=== PATIENT | female | born 1990 | race American Indian/Alaskan Native ===

== ENCOUNTER 2020-05-19 07:55 | Emergency (ER) | payer MEDICAID ==
[~2020-05-19] VITALS: Ht 165.1 cm; Wt 54.4 kg
== END 2020-05-19 11:25 | disposition home or self-care (01) ==
LOC: ED 07:55
DX: M54.9 Dorsalgia, unspecified (principal); R00.0 Tachycardia, unspecified; F15.90 Other stimulant use, unspecified, uncomplicated; F17.200 Nicotine dependence, unspecified, uncomplicated
CPT/HCPCS: 76830; 76856; 80053; 81001; 84703; 85025; 96361; 96374; 99284-25; J1885; J7030

== ENCOUNTER 2020-06-25 05:43 | Emergency (ER) | payer OTHER ==
[~2020-06-25] VITALS: Ht 165.1 cm; Wt 54.4 kg
[2020-06-25] MEDS ORDERED: ZOFRAN4 MG PO (07:04)
[2020-06-25] MEDS ORDERED: POTASSIUM CHLO20 ME1 PO (07:04)
--- NOTE | 2020-06-25 19:55 | PATH ---
[facility] [address] [place], [place] [address] Signed ORDERING PHYSICIAN: Billie Vick MD PATIENT NAME: RADAMES WILD GENDER: F : 1990 SPECIMEN(S): CLINICAL HISTORY: Routine Pap Smear MOLECULAR PATHOLOGY RESULTS: SARS-CoV-2 Not Detected ADDITIONAL NOTES.: The Blanding Fusion SARS-CoV-2 Assay is a multiplex real-time PCR (RT-PCR) in vitro diagnostic test intended for the qualitative detection of RNA from SARS-CoV-2 from individuals who meet COVID-19 clinical and/or epidemiological criteria. In general, SARS-CoV-2 RNA can be detected during the acute phase of infection. Positive results indicate the presence of SARS-CoV-2 RNA. Clinical correlation with patient history and other diagnostic information is necessary to determine patient infection status. Positive results do not rule out bacterial infection or co-infection with other viruses. Negative results do not preclude SARS-CoV-2 infection and should not be used as the sole basis for patient management decisions. Negative results must be combined with other clinical observations, patient history, and epidemiological information. The Blanding Fusion SARS-CoV-2 Assay is not yet approved or cleared by the [place] FDA. When there are no FDA-approved or cleared tests available, and other criteria are met, FDA can make tests available under an emergency access mechanism called an Emergency Use Authorization (EUA). The EUA for this test is supported by the Drywall Taper Helper of Health and Human Service's (HHS's) declaration that circumstances exist to justify the emergency use of in vitro diagnostics for the detection and/or diagnosis of the virus that causes COVID-19. This EUA will remain in effect for the duration of the COVID-19 declaration justifying emergency of IVDs, unless it is terminated or revoked by FDA, after which the test may no longer be used. The Blanding Fusion SARS-CoV-2 Assay is for use only under EUA in US laboratories certified under the Clinical Laboratory Improvement PATIENT NAME: RADAMES WILD PATHOLOGY DATE OF : [birth year] REPORT #: [id number] PHYSICIAN: SITA PATHOLOGY PCP: NO PRIMARY CARE PHYSICIAN REPORT IS CONFIDENTIAL AND NOT TO BE RELEASED WITHOUT AUTHORIZATION [facility] [address] [place] [id number] Signed Amendments of 1988 (CLIA) to perform high complexity tests. [facility] is certified under CLIA to perform high complexity clinical laboratory testing. PERFORMING LABORATORY.: Molecular testing was performed by [facility] [address] [place], [place] [address] [address] (Property Technician: Dale Jorge D.O.; CLIA#: [id number]) Diagnostician: System Interface Pathologist Electronically Signed 06/25/2020 Copies: ~ PATIENT NAME: RADAMES WILD PATHOLOGY DATE OF : [birth year] REPORT #: [id number] PHYSICIAN: SITA BARRERA PCP: NO PRIMARY CARE PHYSICIAN REPORT IS CONFIDENTIAL AND NOT TO BE RELEASED WITHOUT AUTHORIZATION
--- NOTE | 2020-06-26 15:10 | EKG ---
[facility] [address] [facility] [place] [address] Signed Sinus rhythm with marked sinus arrhythmia Possible Left atrial enlargement Borderline ECG No previous ECGs available Confirmed by DEMETRICE MOTTA MD ([id number]) on 06/26/2020 3:10:24 PM Electronically Signed By: DEMETRICE MOTTA MD 06/26/20 1510 PATIENT NAME: RADAMES WILD Electrocardiogram DATE OF : [birth year] PHYSICIAN: DEMETRICE MOTTA MD REPORT #: [id number] REPORT IS CONFIDENTIAL AND NOT TO BE RELEASED WITHOUT AUTHORIZATION
== END 2020-06-25 07:13 | disposition home or self-care (01) ==
LOC: ED 05:43
DX: O99.511 Diseases of the respiratory system complicating pregnancy, first trimester (principal); J06.9 Acute upper respiratory infection, unspecified; O99.281 Endocrine, nutritional and metabolic diseases complicating pregnancy, first trimester; E87.6 Hypokalemia; Z20.828 Contact with and (suspected) exposure to other viral communicable diseases; Z3A.01 Less than 8 weeks gestation of pregnancy; O99.331 Smoking (tobacco) complicating pregnancy, first trimester; F17.200 Nicotine dependence, unspecified, uncomplicated
CPT/HCPCS: 71045; 80053; 81001; 83735; 84703; 85025; 85379; 87077; 87088; 87186; 93005; 93010; 96374; 99285-25; C9803; J2405; J7030

== ENCOUNTER 2020-06-25 12:18 | Emergency (ER) | payer SELFPAY ==
[~2020-06-25] VITALS: Ht 165.1 cm; Wt 54.4 kg
[~2020-06-25 12:18] MED LIST: POTASSIUM CHLO20 ME1 PO; ZOFRAN4 MG PO
--- OUTSIDE RECORDS SUMMARY | 2020-06-25 12:20 | XMS ---
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 Evelyn has no Care Guidelines for this patient. [facility] MO[facility] NOTE: Visits indicate total known visits. ED/C VISIT TRACKING (12 MO.) 06/25/2020 12:[address] [facility] [place] TYPE: Emergency COMPLAINT: - VAGINAL BLEEDING 06/25/2020 05:43 [facility] [place] TYPE: Emergency COMPLAINT: - CHEST PAIN, VOMITING 05/19/2020 07:55 [facility] TYPE: Emergency COMPLAINT: - ABD PAIN, BACK PAIN DIAGNOSES: - Nicotine dependence, unspecified, uncomplicated - Tachycardia, unspecified - Other stimulant use, unspecified, uncomplicated - Lower abdominal pain, unspecified - Dorsalgia, unspecified INPATIENT VISIT TRACKING (12 MO.) No inpatient visits to display in this time frame [email or web address]
== END 2020-06-25 16:31 | disposition home or self-care (01) ==
LOC: ED 12:18
DX: O20.0 Threatened abortion (principal); O99.331 Smoking (tobacco) complicating pregnancy, first trimester; F17.200 Nicotine dependence, unspecified, uncomplicated; Z79.899 Other long term (current) drug therapy
CPT/HCPCS: 84702; 86900; 86901; 87491; 87591; 96372; 99284-25; J0696

== ENCOUNTER 2020-07-11 14:08 | Emergency (ER) | payer OTHER ==
[~2020-07-11] VITALS: Ht 165.1 cm; Wt 54.4 kg
--- OUTSIDE RECORDS SUMMARY | 2020-07-11 14:12 | XMS ---
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 Evelyn has no Care Guidelines for this patient. Care History Medical/Surgical 06/28/2020 [facility] -CHW CONTACTED PATIENT-PATIENT STATED SHE IS WORKING WITH SOMEONE ON APPLYING FOR OHP. DOES NOT NEED FURTHER ASSISTANCE WITH FINDING A PCP AND OR HELP APPLYING FOR OHP- PATIENT RECENTLY MOVED FROM [place] AND HAS [place] MEDICAID CURRENTLY. E.D. VISIT COUNT (12 MO.) 4 [facility] TOTAL 4 NOTE: Visits indicate total known visits. ED/UCC VISIT TRACKING (12 MO.) 07/11/2020 14:09 [facility] [place] TYPE: Emergency COMPLAINT: - LOWER BACK PAIN 06/25/2020 12:18 [facility] [place] TYPE: Emergency COMPLAINT: - VAGINAL BLEEDING DIAGNOSES: - Other long-term (current) drug therapy - Nicotine dependence, unspecified, uncomplicated - Threatened - Abnormal uterine and vaginal bleeding, unspecified - Smoking (tobacco) complicating , first trimester 06/25/2020 05:43 [facility] [place] TYPE: Emergency COMPLAINT: - CHEST PAIN, VOMITING DIAGNOSES: - Nicotine dependence, unspecified, uncomplicated - Less than 8 weeks gestation of - Acute upper respiratory infection, unspecified - Cough - Endocrine, nutritional and metabolic diseases complicating pr - Diseases of the respiratory system complicating , fi - Smoking (tobacco) complicating , first trimester - Hypokalemia - Contact with and (suspected) exposure to other viral communic 05/19/2020 07:55 [facility] [place] TYPE: Emergency COMPLAINT: - ABD PAIN, BACK PAIN DIAGNOSES: - Nicotine dependence, unspecified, uncomplicated - Tachycardia, unspecified - Other stimulant use, unspecified, uncomplicated - Lower abdominal pain, unspecified - Dorsalgia, unspecified INPATIENT VISIT TRACKING (12 MO.) No inpatient visits to display in this time frame [email or web address]
== END 2020-07-11 17:31 | disposition home or self-care (01) ==
LOC: ED 14:08
DX: O03.9 Complete or unspecified spontaneous abortion without complication (principal); F17.200 Nicotine dependence, unspecified, uncomplicated
CPT/HCPCS: 76801; 76817; 84702; 85025; 99284-25

== ENCOUNTER 2020-09-08 21:51 | Emergency (ER) | payer OTHER ==
[~2020-09-08] VITALS: Ht 165.1 cm; Wt 57.2 kg
[2020-09-09] MEDS ORDERED: ZOFRAN4 MG PO (00:52)
--- NOTE | 2020-09-09 09:51 | EKG ---
[facility] [address] [facility] [place] [facility] [place], [place] [address] Signed Sinus tachycardia Biatrial enlargement Abnormal ECG When compared with ECG of 25-JUN-2020 05:50, No significant change was found Confirmed by DEMETRICE MOTTA MD ([id number]) on 09/09/2020 9:51:49 AM Electronically Signed By: DEMETRICE MOTTA MD 09/09/20 0951 PATIENT NAME: TORRIRADAMES Electrocardiogram DATE OF : [birth year] PHYSICIAN: DEMETRICE MOTTA MD REPORT #: [id number] REPORT IS CONFIDENTIAL AND NOT TO BE RELEASED WITHOUT AUTHORIZATION
== END 2020-09-09 01:10 | disposition home or self-care (01) ==
LOC: ED 21:51
DX: O21.0 Mild hyperemesis gravidarum (principal); O99.321 Drug use complicating pregnancy, first trimester; F15.10 Other stimulant abuse, uncomplicated; Z3A.11 11 weeks gestation of pregnancy; O99.511 Diseases of the respiratory system complicating pregnancy, first trimester; J45.909 Unspecified asthma, uncomplicated; O99.331 Smoking (tobacco) complicating pregnancy, first trimester; F17.200 Nicotine dependence, unspecified, uncomplicated
CPT/HCPCS: 76801; 76817; 80053; 81001; 83605; 83690; 83735; 84702; 84703; 85025; 93005; 93010; 96374; 99284-25; J2405; J7030

== ENCOUNTER 2020-11-16 01:35 | Emergency (ER) | payer OTHER ==
[~2020-11-16] VITALS: Ht 165.1 cm; Wt 59.0 kg
[2020-11-16] MEDS ORDERED: PRENATAL FORMU1 EAC2 PO (01:45)
== END 2020-11-16 05:08 | disposition home or self-care (01) ==
LOC: ED 01:35
DX: O99.891 Other specified diseases and conditions complicating pregnancy (principal); M54.5 Low back pain; M54.2 Cervicalgia; R10.9 Unspecified abdominal pain; O99.332 Smoking (tobacco) complicating pregnancy, second trimester; F17.200 Nicotine dependence, unspecified, uncomplicated; Z3A.20 20 weeks gestation of pregnancy; V47.6XXA Car passenger injured in collision with fixed or stationary object in traffic accident, initial encounter
CPT/HCPCS: 72125; 74177; 76815; 76817; 80053; 83690; 84702; 85025; 99284-25; A9270; Q9967

== ENCOUNTER 2021-03-18 01:14 | Inpatient (IN) | payer OTHER ==
[~2021-03-18] VITALS: Ht 165.1 cm; Wt 60.3 kg
[~2021-03-18 01:14] MED LIST changes: +PRENATAL FORMU1 EAC2 PO
--- NOTE | 2021-03-18 03:20 | NUR ---
03/18/21 0320 Bryanna Dnoovan 0310 PATIENT ARRIVES TO EYES CLOSED, YELLING AND SCREAMING. REQUIRES 2 RNS TO KEEP PATIENT IN BED. DOES NOT FOLLOW COMMANDS. RESP EVEN AND UNLABORED, ROOM AIR SATS >98%. 0315 [employer] [employer] FUNDER AT BEDSIDE. MEDICATING PATIENT FOR AGGITATION. RESP EVEN AND UNLABORED, ROOM AIR SATS >97%. 0319 PATIENT STILL AGGITATED. CONTINUES TO REQUIRE 2 RNS AT BEDSIDE TO KEEP PATIENT IN BED. PATIENTS EYES CLOSED, DOES NOT FOLLOW COMMANDS BUT TRYING TO GET OUT OF BED. YELLING AND SCREAMING AT STAFF. SIGNIFICANT OTHER AT BEDSIDE, REPORTS PATIENT HAS A HX OF FENTANYL DRUG USE.
--- NOTE | 2021-03-18 08:35 | OR ---
[facility] [address] [place], [place] [address] Signed DATE OF OPERATION: 03/18/2021 SURGEON: Salvador Patel MD PREOPERATIVE DIAGNOSES: Term labor, previous section and inadequate care. POSTOPERATIVE DIAGNOSIS: Term labor, previous section and inadequate care. PROCEDURE: Repeat low transverse segment section, delivery of live female infant. FIRE AND SAFETY HELPER: Dr. Luque. ANESTHESIA: Spinal and general. ESTIMATED BLOOD LOSS: 700 mL. COMPLICATIONS: None. DRAINS: Weir to bladder. FINDINGS: Live female infant, Apgars 8 and 9. Weight 7 pounds 4 ounces. Normal uterus, normal tubes and ovaries bilateral. There was small adhesion from the right anterior uterus to the anterior abdominal wall, approximately 1 cm wide, otherwise no adhesions. DESCRIPTION OF PROCEDURE: The patient was brought to the operating room, placed in supine position. After spinal anesthesia was obtained, the patient was prepped and draped in usual sterile fashion. Upon testing patient for adequate anesthesia, the spinal was not effective, so it was decided to proceed with general anesthesia. The patient had Weir catheter already placed in the bladder, so as soon as general anesthesia was obtained, a Pfannenstiel skin incision was made with a scalpel through previous skin incision. Subcutaneous Electronically Signed By: SALVADOR PATEL MD 03/18/21 0835 PATIENT NAME: RADAMES WILD OPERATIVE REPORT DATE OF : [birth year] REPORT #: [id number] PHYSICIAN: SALVADOR PATEL MD PCP: NO PRIMARY CARE PHYSICIAN REPORT IS CONFIDENTIAL AND NOT TO BE RELEASED WITHOUT AUTHORIZATION [facility] [address] [place], [place] [address] Signed tissue was dissected with a scalpel and the fascia nicked with scalpel and extended in transverse fashion using curved scissors. The underlying abdominal musculature was bluntly from the abdominal musculature. The abdominal musculature was along the midline, peritoneum was nicked with scissors and extended in vertical fashion using curved scissors. The uterine adhesion was noted and this was cut with Mahmood scissors and then the Petar self-retaining retractor inserted into the incision and tightened in place. The lower uterine segment was identified and noted to be quite thin. Lower uterine segment was carefully nicked with scalpel and extended in transverse fashion using finger dissection, clear fluid came from the incision. The infant was noted to be in vertex presentation and the infant's head easily delivered from the incision. The rest of the was easily delivered from the incision. The cord was doubly clamped and cut. The passed off table in good condition to awaiting nurse. The placenta was manually removed and uterine cavity explored to lap pad removing any retained membranes. An angle stitch of 0 Monocryl was placed at one end of the incision and a running locking stitch of 0-Monocryl starting at the other end used to close the incision. A 2nd running stitch of 0 Monocryl was used to imbricate the 1st layer. Good hemostasis was noted. The entire pelvis was irrigated suctioned, examined and noted to have good hemostasis. At this point, the Petar retractor was removed. The area of adhesion on the uterus was cauterized at the cut end to prevent any bleeding and then sheet of ACell placed over the lower uterine segment to help with healing. The anterior wall peritoneum was closed using running stitch of 2-0 Vicryl suture. The abdominal musculature was reapproximated using interrupted stitches of 0 Vicryl suture. The abdominal wall incision was irrigated, suctioned, and examined, and any bleeding spots cauterized with Bovie. The abdominal musculature was then sprinkled with powdered ACell. The fascia was then closed using two running stitch of 0 Vicryl suture meeting in the midline. Subcutaneous tissue was irrigated, suctioned, and examined, and any bleeding spots cauterized with the Bovie. Subcutaneous tissue was then closed using interrupted stitches of 3-0 Vicryl suture and the skin was reapproximated using skin clips. The patient tolerated the procedure well, went to recovery room in good condition. The sponge, needle, and instrument count were correct at end of procedure. Salvador Patel MD MJB/MODL /[id number] Electronically Signed By: SALVADOR PATEL MD 03/18/21 0835 PATIENT NAME: RADAMES WILD OPERATIVE REPORT DATE OF : [birth year] REPORT #: [id number] PHYSICIAN: SALVADOR PATEL MD PCP: NO PRIMARY CARE PHYSICIAN REPORT IS CONFIDENTIAL AND NOT TO BE RELEASED WITHOUT AUTHORIZATION [address] [address] Signed cc: Tiffany Brand MD Copies: TIFFANY BRAND MD ~ Electronically Signed By: SALVADOR PATEL MD 03/18/21 0835 PATIENT NAME: RADAMES WILD OPERATIVE REPORT DATE OF : [birth year] REPORT #: [id number] PHYSICIAN: SALVADOR PATEL MD PCP: NO PRIMARY CARE PHYSICIAN REPORT IS CONFIDENTIAL AND NOT TO BE RELEASED WITHOUT AUTHORIZATION
--- NOTE | 2021-03-19 10:49 | PR ---
[facility] [address] [place] [address] Signed PP Progress Notes Datetime Report Generated by CPN: 03/19/2021 10:49 SUBJECTIVE: [id number] Pain: Within Normal Limits Nausea/Vomiting: Denies Vital Signs: [id number] Vital Signs: Reviewed; Within Normal Limits EXAM: Ongoing Abdomen/Uterus: Normal Lochia: Normal Extremities: Normal Incision: Normal IMPRESSION/PLAN/PROCEDURES: [id number] Impression: Normal Progression Plan: Continue Present Management Procedures: None Progress Notes: Doing well except still some abdominal soreness, but has been up walking in room and has been able to void. Increase activitiy as tolerated. Signing Physician: Juan Florez MD Copies: ~ *Electronically Signed* 03/19/21 1049 JUAN FLOREZ MD PATIENT NAME: RADAMES WILD PROGRESS NOTE DATE OF : [birth year] PHYSICIAN: JUAN FLOREZ MD RPT #: [id number] REPORT IS CONFIDENTIAL AND NOT TO BE RELEASED WITHOUT AUTHORIZATION
--- NOTE | 2021-03-20 12:40 | PR ---
[facility] [address] [facility] [place], [place] [address] Signed PP Progress Notes Datetime Report Generated by CPN: 03/20/2021 12:40 SUBJECTIVE: [id number] Pain: Within Normal Limits Nausea/Vomiting: Denies Bowel Movement: Yes Vital Signs: [id number] Vital Signs: Reviewed; Within Normal Limits EXAM: Ongoing Abdomen/Uterus: Normal Lochia: Normal Extremities: Normal Incision: Normal IMPRESSION/PLAN/PROCEDURES: [id number] Impression: Normal Progression Other Impression: PP Anemia Plan: Discharge Procedures: None Progress Notes: Doing well, except slight clear productive cough, with clear lungs after coughing, no fever, no SOB. Loose stool yesterday seemd to be improving after taking Imodium. Ready to go home. Signing Physician: Juan Florez MD Copies: ~ *Electronically Signed* 03/20/21 1240 JUAN FLOREZ MD PATIENT NAME: RADAMES WILD PROGRESS NOTE DATE OF : [birth year] PHYSICIAN: JUAN FLOREZ MD RPT #: [id number] REPORT IS CONFIDENTIAL AND NOT TO BE RELEASED WITHOUT AUTHORIZATION
== END 2021-03-20 13:45 | disposition home or self-care (01) | DRG 788 ==
LOC: FBCO 01:14 → FBC 01:24
PROVIDERS: ADMIT General Practice; ATTEND General Practice
PROC: 10D00Z1 Extraction of Products of Conception, Low, Open Approach (ICD-10-PCS; principal; 2021-03-18 02:07)
PROC: 3E0234Z Introduction of Serum, Toxoid and Vaccine into Muscle, Percutaneous Approach (ICD-10-PCS; 2021-03-20)
DX: O34.211 Maternal care for low transverse scar from previous cesarean delivery (principal); N85.8 Other specified noninflammatory disorders of uterus; Z20.822 Contact with and (suspected) exposure to COVID-19; Z37.0 Single live birth; O90.81 Anemia of the puerperium; D64.9 Anemia, unspecified; Z3A.37 37 weeks gestation of pregnancy; O99.334 Smoking (tobacco) complicating childbirth; F17.210 Nicotine dependence, cigarettes, uncomplicated; O99.52 Diseases of the respiratory system complicating childbirth; J45.20 Mild intermittent asthma, uncomplicated; Z79.899 Other long term (current) drug therapy; Z23 Encounter for immunization
CPT/HCPCS: 01961; 36415; 85027; 90716; A9270; G0480; J0330; J0690; J2001; J2250; J2270; J2274; J2370; J2590; J2704; J3010; J3105; U0003

== ENCOUNTER 2021-04-24 06:57 | Emergency (ER) | payer OTHER ==
[~2021-04-24] VITALS: Ht 152.4 cm; Wt 54.4 kg
[2021-04-24] MEDS ORDERED: IBUPROFEN800 MG PO (07:16)
[2021-04-24] MEDS ORDERED: TYLENOL325 M1 PO (07:16)
[2021-04-24] MEDS ORDERED: CYCLOBENZAPRINE10 MG PO (08:08)
== END 2021-04-24 09:49 | disposition home or self-care (01) ==
LOC: ED 06:57
DX: S29.012A Strain of muscle and tendon of back wall of thorax, initial encounter (principal); X58.XXXA Exposure to other specified factors, initial encounter; J45.909 Unspecified asthma, uncomplicated; F17.200 Nicotine dependence, unspecified, uncomplicated; Z79.899 Other long term (current) drug therapy
CPT/HCPCS: 99283; A9270

== ENCOUNTER 2021-08-06 21:59 | Emergency (ER) | payer OTHER ==
[~2021-08-06] VITALS: Ht 165.1 cm; Wt 52.0 kg
[~2021-08-06 21:59] MED LIST changes: +CYCLOBENZAPRINE10 MG PO; +IBUPROFEN800 MG PO; +TYLENOL325 M1 PO
[2021-08-06] MEDS ORDERED: DICYCLOMINE HCL20 MG PO (23:38)
[2021-08-06] MEDS ORDERED: DICLOFENAC SODI75 MG PO (23:38)
== END 2021-08-06 23:59 | disposition home or self-care (01) ==
LOC: ED 21:59
DX: K52.9 Noninfective gastroenteritis and colitis, unspecified (principal); M54.50 Low back pain, unspecified; J45.909 Unspecified asthma, uncomplicated; F17.200 Nicotine dependence, unspecified, uncomplicated
CPT/HCPCS: 74177; 80053; 80500; 81001; 83690; 83735; 84703; 85025; 99284-25; Q9967

== ENCOUNTER 2021-08-22 09:57 | Emergency (ER) | payer OTHER ==
[~2021-08-22] VITALS: Ht 165.1 cm; Wt 53.6 kg
[~2021-08-22 09:57] MED LIST changes: +DICLOFENAC SODI75 MG PO; +DICYCLOMINE HCL20 MG PO
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
== END 2021-08-22 12:44 | disposition home or self-care (01) ==
LOC: ED 09:57
DX: J02.0 Streptococcal pharyngitis (principal); J45.909 Unspecified asthma, uncomplicated; F17.200 Nicotine dependence, unspecified, uncomplicated
CPT/HCPCS: 96372; 99283; J0561